=== PATIENT | female | born 1980 | race Caucasian/White ===

== ENCOUNTER 2017-03-17 11:33 | Emergency (ER) | payer BC ==
[~2017-03-17] VITALS: Ht 162.6 cm; Wt 86.8 kg
[2017-03-17 14:09] LABS: HEMATOCRIT 43.9 % (36.0-46.0); MCH 28.7 PG (29.0-34.0); MCHC 32.8 G/DL (30.0-36.0); MCV 87.5 FL (83-99); MEAN PLAT.VOLUME 9.1 uM^3 (9.5-12.4); PLATELET COUNT 309 K/uL (156-360); RBC DIS.WIDTH-SD 38.5 % (39-53); RED BLOOD COUNT 5.02 M/uL (3.80-5.20); WHITE BLOOD COUNT 10.5 K/uL (4.1-10.2)
[2017-03-17 14:11] LABS: ADD MIUA? YES; BILIRUBIN NEGATIVE; BLOOD LARGE; COLOR YELLOW ((YELLOW)); GLUCOSE (STRIP) NEGATIVE; KETONES 5; LEUKOCYTES TRACE; NITRITE NEGATIVE; PROTEIN (STRIP) NEGATIVE; SPECIFIC GRAVITY 1.008 (1.000-1.030); UROBILINOGEN 0.2 MG/DL (0.2-1.0)
[2017-03-17 14:19] LABS: D-DIMER ELISA < 150.00 ng/mLDDU (<230)
[2017-03-17 14:20] LABS: CHLORIDE 109 mEq/L (99-109); POTASSIUM 3.7 mEq/L (3.7-5.4); SODIUM 139 mEq/L (136-147)
[2017-03-17 14:21] LABS: GLUCOSE 95 mg/dL (70-99)
[2017-03-17 14:23] LABS: ANION GAP 8 MEQ/L (2-14)
[2017-03-17 14:25] LABS: BACTERIA RARE /HPF; CASTS NONE SEEN /LPF; CRYSTALS NONE SEEN; EPITHELIAL CELLS 1+ /HPF; GFR ESTIMATE (CALCULATED) > 59 mL/min/; MUCUS NONE SEEN /LPF; RED BLOOD CELLS TNTC /HPF (0-5); WHITE BLOOD CELLS 0-5 /HPF (0-5)
[2017-03-17 14:26] LABS: UREA NITROGEN (BUN) 8 mg/dL (9-23)
[2017-03-17 14:31] LABS: TROP-I INTERPRETATION NEGATIVE; TROPONIN-I < 0.01 ng/mL (0.0-0.30)
[2017-03-17 15:51] VITALS: BP 130/76
== END 2017-03-17 15:52 | disposition home or self-care (01) ==
LOC: EME 11:33
PROVIDERS: Physician Assistant
DX: R07.89 Other chest pain (principal); F41.9 Anxiety disorder, unspecified; Z87.891 Personal history of nicotine dependence
CPT/HCPCS: 71020; 80048; 81003; 84484; 85027; 85379; 93005; 99281; 99284